=== PATIENT | female | born 1955 | race Caucasian/White ===

== ENCOUNTER 2022-11-07 11:41 | Emergency (ER) | payer MEDICARE, OTHER, SELFPAY ==
[2022-11-07 11:53] VITALS: BP 158/76; PULSE 60; RESP 16; TEMP 36.6; O2SAT 99; BMI 38.2
--- NOTE | 2022-11-07 11:59 | DI.US.S_ITS ---
PROCEDURE: US PERIPH VENOUS LOW EXTREM LT INDICATIONS: PAIN TECHNIQUE: Real-time imaging, as well as color and pulse Doppler interrogation, were performed of the lower extremity deep veins from the inguinal ligament to the popliteal fossa. COMPARISON: None. FINDINGS: The common femoral, femoral and popliteal veins are normally compressible, and free of intraluminal thrombus. Color and pulse Doppler demonstrate normal phasic intraluminal flow. There is normal augmentation response to distal compression maneuver. IMPRESSION: Negative for deep venous thrombosis of the left lower extremity. Dictated by: Rao Carolina M.D. on 11/07/2022 at 11:55 Approved by: Rao Carolina M.D. on 11/07/2022 at 11:55
--- NOTE | 2022-11-07 13:59 | ED_ITS ---
HPI - Extremity Problem General Chief complaint: Extremity Problem,Nontraumatic Stated complaint: lt calf pain Time Seen by Provider: 11/07/22 13:53 Source: patient Mode of arrival: Ambulatory Limitations: no limitations History of Present Illness HPI Narrative: This is a 67-year-old female with history of diabetes, prior microscopic colitis and C diff, hypertension, dyslipidemia and GERD who presents with complaint of left calf pain swelling and sensation of hardness on the posterior calf. Patient states she does travel and RV she sits for long periods of time traveling. No prior history of DVT no recent surgery, hormones, no cancer. Patient states her legs were both a little swollen they have improved but she is got an area of hardness it is a little bit redder on her posterior calf it is not a lump but more of an area and discomfort that is located on that area. Little bit warm to touch. Patient denies fevers or chills or other systemic symptoms. No chest pain, no shortness of breath, no nausea or vomiting, no diarrhea constipation. No numbness tingling or weakness. She states she has a lot of spots on her lower extremities from seeing skin cancer doctor in the past but has not had any cuts or abrasions or recent injuries. Related Data Previous Rx's Medication Instructions Recorded sulfamethoxazole 800 1 tab PO BID #10 tabs 11/07/22 mg-trimethoprim 160 mg tablet (Bactrim DS) Review of Systems Review of Systems ROS Unobtainable: All systems reviewed & are unremarkable except as noted in HPI and below Exam Narrative Exam Narrative: GENERAL: Alert and oriented x three, female in mild distress. HEENT: Head normocephalic, atraumatic, EOMI, pupils reactive, face symmetric, moist mucous membranes NECK: Supple, full range of motion CARDIOVASCULAR: Regular rate and rhythm without murmurs, rubs or gallops. RESPIRATORY: Breath sounds equal bilaterally, no wheezes rales or rhonchi. ABDOMEN: Soft, nontender. Normoactive bowel sounds all 4 quadrants. No guarding or rebound, rigidity, no mass : No CVA tenderness EXTREMITIES: Normal range of motion, no clubbing or edema. Neurovascularly intact. Patient has no edema bilateral lower extremities. She is slightly tender to palpation on the posterior mid calf on the left leg there is some induration but no fluid collection. It is different than her other calf. There is some slight erythema, there is no clear line of demarcation. Patient is tender over that region. There is some slight warmth. Patient does not have any swelling left versus right calf. NEUROLOGICAL: Cranial nerves II through XII grossly intact. Moving all extremities SKIN: Warm, dry, no petechiae, no rashes or lesions. Patient notes strict I am ecchymosis on her right upper extremity after accidentally running her fingernails across her arm 1 or 2 weeks ago. Initial Vital Signs Initial Vital Signs: Vital Signs Temperature 97.8 F 11/07/22 11:53 Pulse Rate 60 11/07/22 11:53 Respiratory Rate 16 11/07/22 11:53 Blood Pressure 158/76 H 11/07/22 11:53 Pulse Oximetry 99 11/07/22 11:53 Oxygen Delivery Method Room Air 11/07/22 11:53 Course Orders Ordered: ED Orders 11/07/22 11:59 US periph venous low extrem lt Stat Vital Signs Vital signs: Vital Signs - 8 hr 11/07/22 11:53 11/07/22 14:42 Temperature 97.8 F Pulse Rate 60 87 Respiratory Rate 16 18 Blood Pressure 158/76 H 137/77 Pulse Oximetry 99 97 Oxygen Delivery Method Room Air Room Air MDM - Extremity (Nontraumatic) Imaging Data US - DVT: Radiologist's Impression: [place] [address] Ultrasound Report Signed Patient: Genie Peres MR#: [id number] : 1955 Acct:[id number] Age/Sex: 67 / F Date of Service: 11/07/22 Loc: ED Accession Number: [id number] ?? Procedure: US periph venous low extrem lt Ordering Provider: Dory Curtis D.O. PROCEDURE:? US PERIPH VENOUS LOW EXTREM LT ? INDICATIONS:? PAIN ? TECHNIQUE:? Real-time imaging, as well as color and pulse Doppler interrogation, were performed of the lower extremity deep veins from the inguinal ligament to the popliteal fossa.? ? COMPARISON:? None. ? FINDINGS:? The common femoral, femoral and popliteal veins are normally compressible, and free of intraluminal thrombus.? Color and pulse Doppler demonstrate normal phasic intraluminal flow.? There is normal augmentation response to distal compression maneuver. ? ? IMPRESSION:? Negative for deep venous thrombosis of the left lower extremity. ? ? ? Dictated by: Rao Carolina M.D. on 11/07/2022 at 11:55 ? ? Approved by: Rao Carolina M.D. on 11/07/2022 at 11:55?? [facility] Narrative Medical decision making narrative: This is a 67-year-old female comes in with left calf pain she does have high- risk features she travels regularly in an for long distances. She is not anticoagulated she does not take an aspirin. Patient does have some induration and redness of the posterior calf. DVT ultrasound was obtained and is negative. Patient and I discussed there maybe some cellulitis the areas definitely indurated compared to the other side and it is posterior it is not consistent with venous stasis changes. Possible cellulitis although fairly localized without extensive change. Discussed starting antibiotic versus watchful waiting. Patient has had C diff in the past. She likes to go ahead start antibiotic we discussed starting probiotics to help prevent C diff. Also discussed if she develops symptoms she should be tested. Drug allergies she is a diabetic she does not check her sugars regularly did discuss it would be worthwhile to check them she does have means to do so to make sure she is not running elevated on her glucose as this would predispose her towards skin infections. Discharge Plan Departure Patient Disposition: Home Clinical Impression: Cellulitis of left leg Instructions: DI for Cellulitis -- Adult Activity Restrictions/Additional Instructions: Please follow-up if your symptoms are not improving over the next week. Your ultrasound is negative for DVT or blood clot Please take antibiotic until completed. Because of your history of C diff please take a probiotic with your antibiotic out prevent recurrence of C diff colitis. Prescription sent to Please return for increasing redness, swelling or pain, fevers, new numbness, tingling weakness or other new or concerning changes. Prescriptions: New sulfamethoxazole-trimethoprim [Bactrim DS] 800-160 mg tablet 1 tab PO BID Qty: 10 0RF Referrals: Miscellaneous,DoctorMD [Primary Care Provider] - Stand Alone Forms: Patient Portal/API
[2022-11-07 14:42] VITALS: BP 137/77; PULSE 87; RESP 18; O2SAT 97
== END 2022-11-07 14:42 | disposition home or self-care (01) ==
PROVIDERS: Emergency Provider Emergency Medicine
DX: L03.116 Cellulitis of left lower limb (principal)
CPT/HCPCS: 93971; 99282; 99283

== ENCOUNTER 2022-11-12 11:24 | Emergency (ER) | payer MEDICARE, OTHER, SELFPAY ==
[2022-11-12 11:56] VITALS: BP 144/69; PULSE 57; RESP 14; TEMP 36.4; O2SAT 98; BMI 382.9
--- NOTE | 2022-11-12 12:16 | ED_ITS ---
HPI - Extremity Problem <Brian Ramirez PA-C - Last Filed: 11/12/22 13:25> General Chief complaint: Extremity Problem,Nontraumatic Stated complaint: Lower Left leg Pain hasn't gotten better Time Seen by Provider: 11/12/22 12:13 Source: patient Mode of arrival: Ambulatory History of Present Illness HPI Narrative: This is a 67-year-old female presents to the emergency department due to continued left ankle pain. She states that this started about a week ago after traveling from her home in [place] to here in [place] in an RV. She was seen about 6 days ago and her negative ultrasound and was prescribed antibiotics. She was taken the course of Bactrim without relief of the left ankle pain. She states that there hurts to walk on. She knows some bilateral peripheral edema after the trip in the RV as well. Denies any injuries to the area. Related Data Previous Rx's Medication Instructions Recorded sulfamethoxazole 800 1 tab PO BID #10 tabs 11/07/22 mg-trimethoprim 160 mg tablet (Bactrim DS) Allergies Allergy/AdvReac Type Severity Reaction Status Date / Time No Known Drug Allergies Allergy Verified 11/12/22 12:03 Review of Systems <Brian Ramirez PA-C - Last Filed: 11/12/22 13:25> Review of Systems Narrative: GENERAL: Denies chills, fatigue, malaise, fever, sweats. HEENT: Denies sinus pain, ear pain, sore throat, difficulty swallowing, dizziness. RESPIRATORY: Denies dyspnea, cough, wheezing, hemoptysis, sputum. CARDIOVASCULAR: Denies chest pain, palpitations, orthopnea, edema, GASTROINTESTINAL: Denies nausea, vomiting, abdominal pain, diarrhea, constipation, melena. : Denies dysuria, frequency, incontinence, hematuria, urinary retention. MUSCULOSKELETAL: Reports left ankle and distal tibia pain, bilateral lower extremity edema SKIN: Denies rash, skin lesions, or other NEUROLOGIC: Denies weakness, headache, numbness, change in speech, confusion, seizures, incoordination. PSYCHIATRIC: No concerning psychosocial issues. 12 point review of systems is negative except for those stated above Patient History <Brian Ramirez PA-C - Last Filed: 11/12/22 13:25> Social History Smoking Status: Never smoker Smoking Status: Never smoker alcohol intake frequency: 0-2 drinks per day Substance Use Type: does not use Exam <Brian Ramirez PA-C - Last Filed: 11/12/22 13:25> Narrative Exam Narrative: GENERAL: Well-developed patient, in mild distress. HEAD: Atraumatic. Normocephalic. EYES: Pupils equal round and reactive. Extraocular motions intact. No scleral icterus. No injection or drainage. ENT: Nose without bleeding, purulent drainage. Throat without erythema, tonsillar hypertrophy or exudate. Airway patent. NECK: Trachea midline. Non tender CARDIOVASCULAR: Regular rate and rhythm without murmurs, gallops, or rubs. RESPIRATORY: Clear to auscultation. Breath sounds equal bilaterally. No wheezes, rales, or rhonchi. GASTROINTESTINAL: Abdomen soft, non-tender, nondistended. EXTREMITIES: 1+ pitting edema bilaterally, mild tenderness to palpation with palpation of the distal tibia of the left lower extremity as well as ankle. Neurovascularly intact throughout. BACK: Nontender without deformity or crepitance. No flank tenderness. NEURO: AOx3. SKIN: No rash or erythema of visible areas Initial Vital Signs Initial Vital Signs: Vital Signs Temperature 97.6 F 11/12/22 11:56 Pulse Rate 57 L 11/12/22 11:56 Respiratory Rate 14 11/12/22 11:56 Blood Pressure 144/69 H 11/12/22 11:56 Pulse Oximetry 98 11/12/22 11:56 Oxygen Delivery Method Room Air 11/12/22 11:56 <Lyric Singh DO - Last Filed: 11/13/22 07:21> Initial Vital Signs Initial Vital Signs: Vital Signs Temperature 97.6 F 11/12/22 11:56 Pulse Rate 57 L 11/12/22 11:56 Respiratory Rate 14 11/12/22 11:56 Blood Pressure 144/69 H 11/12/22 11:56 Pulse Oximetry 98 11/12/22 11:56 Oxygen Delivery Method Room Air 11/12/22 11:56 Course <Brian Ramirez PA-C - Last Filed: 11/12/22 13:25> Orders Ordered: ED Orders 11/12/22 12:20 XR ankle LT min 3V Stat XR tibia fibula LT 2V Stat Vital Signs Vital signs: Vital Signs - 8 hr 11/12/22 11:56 Temperature 97.6 F Pulse Rate 57 L Respiratory Rate 14 Blood Pressure 144/69 H Pulse Oximetry 98 Oxygen Delivery Method Room Air <Lyric Singh DO - Last Filed: 11/13/22 07:21> Orders Ordered: ED Orders 11/12/22 12:20 XR ankle LT min 3V Stat XR tibia fibula LT 2V Stat Vital Signs Vital signs: Vital Signs - 8 hr 11/12/22 11:56 Temperature 97.6 F Pulse Rate 57 L Respiratory Rate 14 Blood Pressure 144/69 H Pulse Oximetry 98 Oxygen Delivery Method Room Air MDM - Extremity (Nontraumatic) <Brian Ramirez PA-C - Last Filed: 11/12/22 13:25> Imaging Data Extremity x-ray #1: Radiologist's Impression: [address] [address] XRay Report Signed Patient: Genie Peres MR#: [id number] : 1955 Acct:[id number] Age/Sex: 67 / F Date of Service: 11/12/22 Loc: ED Accession Number: [id number] ?? Procedure: XR ankle LT min 3V Ordering Provider: Brian Ramirez P.A-C PROCEDURE:? XR ANKLE LT MIN 3V ? INDICATIONS:? L ankle pain ? TECHNIQUE:? 3 views of the ankle were acquired.? ? COMPARISON:? None. ? FINDINGS:? ? Bones:? No fractures or dislocations.? Ankle mortise is normally aligned.? No suspicious bony lesions.? ? Soft tissues:? No tibiotalar joint effusion.? Achilles tendon appears normal.? Mild soft tissue swelling of the left ankle. ? ? IMPRESSION:? Mild left ankle soft tissue swelling.? No acute fracture or dislocation.? No suspicious osseous lesions. ? If there are persistent symptoms or clinical suspicion for pathology, then repeat radiographs or advanced imaging (CT or MRI) may be considered for further evaluation. ? Dictated by: Rao Carolina M.D. on 11/12/2022 at 12:14 ? ? Approved by: Rao Carolina M.D. on 11/12/2022 at 12:15 ? Extremity x-ray #2: Radiologist's Impression: PROCEDURE: XR TIBIA FIBULA LT 2V INDICATIONS: L distal tibia pain TECHNIQUE: 2 views of the tibia and fibula were acquired. COMPARISON: None. FINDINGS: Bones: No fractures or dislocations. No suspicious bony lesions. Status post left total knee arthroplasty. Visualized portions of surgical hardware appear intact without evidence for loosening or failure. Soft tissues: No suspicious soft tissue calcifications or masses. IMPRESSION: Left tibia/fibula without acute fracture or dislocation. Postsurgical changes left total knee arthroplasty without evidence for hardware complication. If there are persistent symptoms or clinical suspicion for pathology, then repeat radiographs or advanced imaging (CT or MRI) may be considered for further evaluation. Dictated by: Rao Carolina M.D. on 11/12/2022 at 12:09 Approved by: Rao Carolina M.D. on 11/12/2022 at 12:11 MDM Narrative Medical decision making narrative: MDM * differential diagnosis includes but not limited to fracture, DVT, soft tissue injury, ankle sprain * Prior records reviewed: Patient was seen here a week ago for left lower leg pain. Ultrasound negative for DVT at that time. Diagnosed with cellulitis and prescribed Bactrim for 5 days. No significant improvement in the pain. History of diabetes, hypertension. * My lab interpretation: None obtained * My imgaing interpretation: X-ray of the left ankle showed mild soft tissue swelling but no bony abnormalities * Clinical Decision Rules/Scores evaluated: None * Independent discussions with: None ED Course: This is a 67-year-old female presents to the emergency department due to continued left ankle pain. She was seen a week ago and had negative ultrasound. She is reporting some mild pain with continued left ankle movement. X-rays of the left ankle were negative for any acute fractures. Suspect a mild sprain of the left ankle. Recommended symptomatic and conservative measures. No evidence of any erythema or abscesses and no further antibiotic treatment needed. Recommended she follow up with the primary care provider as she did have 1+ pitting edema bilaterally for possible diuretic prescription. Shared Decision Making: Discussed plan with patient who is comfortable with the plan Social Considerations: None Disposition: Discharged to home Discharge Plan Departure Patient Disposition: Home Clinical Impression: Ankle sprain Instructions: How To Perform RICE (Rest, Ice, Compress, Elevate) Activity Restrictions/Additional Instructions: Thank you for coming to the [facility] Emergency Department today. Your x- rays were negative for any fractures. I would treat this as you would ankle sprain. Please ice, elevate, and use ibuprofen as needed for the pain. I hope you feel better soon. Prescriptions: No Action sulfamethoxazole-trimethoprim [Bactrim DS] 800-160 mg tablet 1 tab PO BID Qty: 10 0RF Referrals: Miscellaneous,Doctor, MD [Primary Care Provider] - Stand Alone Forms: Patient Portal/API <Lyric Singh DO - Last Filed: 11/13/22 07:21> Cosign ED Attending [place] Attestation: I was immediately available in the department for consultation. Documentation has been reviewed.
--- NOTE | 2022-11-12 12:20 | DI.RAD.S_ITS ---
PROCEDURE: XR ANKLE LT MIN 3V INDICATIONS: L ankle pain TECHNIQUE: 3 views of the ankle were acquired. COMPARISON: None. FINDINGS: Bones: No fractures or dislocations. Ankle mortise is normally aligned. No suspicious bony lesions. Soft tissues: No tibiotalar joint effusion. Achilles tendon appears normal. Mild soft tissue swelling of the left ankle. IMPRESSION: Mild left ankle soft tissue swelling. No acute fracture or dislocation. No suspicious osseous lesions. If there are persistent symptoms or clinical suspicion for pathology, then repeat radiographs or advanced imaging (CT or MRI) may be considered for further evaluation. Dictated by: Rao Carolina M.D. on 11/12/2022 at 12:14 Approved by: Rao Carolina M.D. on 11/12/2022 at 12:15
--- NOTE | 2022-11-12 12:20 | DI.RAD.S_ITS ---
PROCEDURE: XR TIBIA FIBULA LT 2V INDICATIONS: L distal tibia pain TECHNIQUE: 2 views of the tibia and fibula were acquired. COMPARISON: None. FINDINGS: Bones: No fractures or dislocations. No suspicious bony lesions. Status post left total knee arthroplasty. Visualized portions of surgical hardware appear intact without evidence for loosening or failure. Soft tissues: No suspicious soft tissue calcifications or masses. IMPRESSION: Left tibia/fibula without acute fracture or dislocation. Postsurgical changes left total knee arthroplasty without evidence for hardware complication. If there are persistent symptoms or clinical suspicion for pathology, then repeat radiographs or advanced imaging (CT or MRI) may be considered for further evaluation. Dictated by: Rao Carolina M.D. on 11/12/2022 at 12:09 Approved by: Rao Carolina M.D. on 11/12/2022 at 12:11
[2022-11-12 13:25] VITALS: BP 141/63; PULSE 56; O2SAT 98
== END 2022-11-12 13:29 | disposition home or self-care (01) ==
PROVIDERS: Emergency Provider Physician Assistant Medical
DX: S93.402A Sprain of unspecified ligament of left ankle, initial encounter (principal); R60.0 Localized edema
CPT/HCPCS: 73590; 73610; 99281; 99283